=== PATIENT | male | born 1950 | race Caucasian/White ===

== ENCOUNTER 2019-09-28 00:30 | Day surgery (SDC) | payer BC, SELFPAY ==
[2019-09-25 09:09] VITALS: BMI 20.8
[2019-09-28] VITALS (22 sets, daily range): BP systolic 96–117; BP diastolic 52–71; PULSE 48–72; RESP 12–18; TEMP 36.2–36.4; O2SAT 93–100
[2019-09-28] MEDS: LACTATED RINGERS 1,000 ML 30 ML IV CONT ×2 (06:30→10:01)
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
--- NOTE | 2019-09-28 07:10 | ECG_ITS ---
Measurements Intervals [place] Rate: 61 P: 81 HI: 154 QRS: -26 QRSD: 87 T: 54 QT: 425 QTc: 431 Interpretive Statements SINUS RHYTHM ATRIAL PREMATURE COMPLEXES PEAKED T WAVES- CONSIDER HYPERKALEMIA OR ISCHEMIA BASELINE ARTIFACT- II, III, AVF ABNORMAL ECG Electronically Signed On 09-28-2019 7:52:27 CDT by Carlos Ruffin D.O.
--- NOTE | 2019-09-28 07:23 | WPDHPUPDATE1 ---
History and Physical Update Update Date/Time: 09/28/19 07:23 History and Physical has been reviewed, including an updated exam of the patient. There are NO changes in the patient's condition. Risks, benefits, and alternatives have been discussed and questions answered. Patient agrees to proceed with procedure.
--- NOTE | 2019-09-28 07:30 | SUR.PREOP ---
Up to bathroom.
[2019-09-28] MEDS: ceFAZolin 2 GM/D5W 50 ML 2 GM/50 ML BAG IVPB (07:41)
[2019-09-28] MEDS: IBUPROFEN IV 800 MG/200 ML 800 MG/200 ML BAG 400 MG IVPB (07:57)
[2019-09-28] MEDS: BUPIVACAINE/EPINEPHRINE 0.5% 30 ML VIAL INFILTRATE (08:16)
--- NOTE | 2019-09-28 09:28 | PM.PROC ---
Procedure Note - Detailed Date of procedure: 09/28/19 Pre-op diagnosis: bilateral inguinal hernia Post-op diagnosis: same ([place] right inguinal hernia, Direct left inguinal hernia) Procedure performed: Laparoscopic bilateral inguinal hernia repair with Progrip mesh, da Manjula assisted Description of procedure: Procedure as well as risks, benefits, and alternatives were discussed with the patient. Written consent was obtained and placed in chart prior to procedure. Patient was brought back to surgical suite. He was placed supine on operating table. Time-out was done to confirm patient and procedure. He was then intubated by Anesthesia Department. His abdomen was prepped and draped in sterile fashion using chlorhexidine prep. 0.5% bupivacaine with epinephrine was infiltrated at each location for incision. A 12 millimeter transverse incision was made just superior to the umbilicus using a 15 blade scalpel. Blunt dissection was carried out down to the linea alba. A vertical incision was made at the linea alba using a 15 blade scalpel. The peritoneum was then bluntly entered. A 12 millimeter trocar was inserted and carbon dioxide insufflation was used to create a pneumoperitoneum. A camera was inserted and the abdominal cavity was inspected. The patient was placed in slight Trendelenburg position. An 8 millimeter incision was made on the right lateral abdomen and an 8 millimeter trocar was inserted under direct visualization. Another 8 millimeter incision was made in the left lateral abdomen and an 8 millimeter trocar was inserted under direct visualization. The robotic arms were brought up to the patient's bedside and secured to the ports. The camera and instruments were inserted. I then moved over to the robotic console and took control of the camera and instruments. After careful inspection of the abdominal cavity, I began scoring the peritoneum along the right lower quadrant using scissors with electrocautery. The preperitoneal plane was entered and this was carefully dissected caudally along the inferior epigastric vessels. Careful dissection with scissors with electrocautery and blunt dissection was used to continue this dissection. I dissected far enough laterally to allow for mesh placement, and also dissected medially to identify the pubic arch and Hiram's ligament. The hernia sac was identified and carefully dissected posteriorly. The cord contents were also identified and the peritoneum was carefully dissected far enough posteriorly to allow for mesh placement. Once an adequate pocket was created, I then placed the mesh within the preperitoneal pocket and carefully unfolded it. The mesh was centered on the hernia defect with adequate overlap circumferentially. The inferior edge of the mesh was inspected to ensure that it was far enough away from the peritoneal edge. The mesh appeared in proper position overlying the entire myopectineal orifice. The peritoneum was then closed over the mesh using a 3-0 V-lock running absorbable suture. I then began scoring the peritoneum along the left lower quadrant using scissors with electrocautery. The preperitoneal plane was entered and this was carefully dissected caudally along the inferior epigastric vessels. Careful dissection with scissors with electrocautery and blunt dissection was used to continue this dissection. I dissected far enough laterally to allow for mesh placement, and also dissected medially to identify the pubic arch and Hiram's ligament. The hernia sac was identified and carefully dissected posteriorly. The cord contents were also identified and the peritoneum was carefully dissected far enough posteriorly to allow for mesh placement. Once an adequate pocket was created, I then placed the mesh within the preperitoneal pocket and carefully unfolded it. The mesh was centered on the hernia defect with adequate overlap circumferentially. The inferior edge of the mesh was inspected to en
--- NOTE | 2019-09-28 10:57 | SUR.PHASEI ---
1057-SPOKE WITH DR. ENGEL, AWARE UNABLE TO AROUSE PT, VSS AND REPORTED, WILL CONTINUE TO OBSERVE.
--- NOTE | 2019-09-28 10:59 | SUR.PHASEI ---
1058-UPDATE GIVEN TO Nawaf SELLERS RN TO GIVE TO PT'S .
--- NOTE | 2019-09-28 11:03 | SUR.PHASEI ---
1101-DR. RINCON IN PACU AND AWARE OF PT STATUS, NO NEW ORDERS.
--- NOTE | 2019-09-28 11:23 | SUR.PHASEI ---
1103-DR. ENGEL AT [facility], PT RESPONDED WITH OPENING EYES WITH STERNAL RUB.
--- NOTE | 2019-09-28 17:06 | SUR.PHASEII ---
1600 DR RINCON AWARE OF PT UNABLE TO URINATE- MERCEDES CATHETER ORDERED. INSTRUCTED TO HAVE PT FOLLOW UP ON SATURDAY MORNING FOR MERCEDES CATHETER REMOVAL.
== END 2019-09-28 17:28 | disposition home or self-care (01) ==
PROVIDERS: PCP Family Medicine; Visit Provider Surgery
PROC: 8E0Y4CZ Robotic Assisted Procedure of Lower Extremity, Percutaneous Endoscopic Approach (ICD-10-PCS; CPT 49650; principal; 2019-09-28 07:30)
DX: K40.20 Bilateral inguinal hernia, without obstruction or gangrene, not specified as recurrent (principal); J44.9 Chronic obstructive pulmonary disease, unspecified; E07.9 Disorder of thyroid, unspecified; Z86.19 Personal history of other infectious and parasitic diseases; F17.210 Nicotine dependence, cigarettes, uncomplicated
CPT/HCPCS: 49650; S2900; 36415; 86850; 86900; 86901; 93005; A9270; C1781; J0330; J0690; J1100; J1741; J2250; J2370; J2405; J2704; J2710; J3010; J7030; J7120

== ENCOUNTER 2021-10-19 08:56 | Outpatient (CLI) | payer MEDICARE, SELFPAY ==
--- NOTE | ~2021-10-19 | US_ITS ---
EXAMINATION: US aorta [facility] DATE: 10/19/2021 10:06 INDICATION: Abdominal aortic aneurysm screening with risk factors of prior smoking. TECHNIQUE: Grayscale, color Doppler, and pulsed Doppler images of the aorta and common iliac arteries were obtained. COMPARISON: None. FINDINGS: The proximal aorta measures 3.0 cm. The mid aorta measures 2.2 cm. The distal aorta measures 2.1 cm. The right common iliac artery measures 1.3 cm. The left common iliac artery measures 1.0 cm. IMPRESSION: 1. Normal caliber abdominal aorta. Reviewed, dictated and finalized at location B.
--- NOTE | ~2021-10-19 | CT_ITS ---
EXAMINATION:CT lung screening DATE: 10/19/2021 09:24 INDICATION: Nicotine dependence, cigarettes, uncomplicated. Current smoker with 37 pack year history. TECHNIQUE: Computed tomography (CT) of the chest was performed without intravenous contrast. Automate d exposure control and iterative reconstruction technique were employed. The dose-length product (DLP ) was 78.02 mGy-cm. COMPARISON: Chest CT 11/01/2015 FINDINGS: There is severe emphysema. There is worsened partial collapse of right middle lobe with bro nchiectasis. There is mild atelectasis in the lower lobes and lingula. There is stable mild scarring at right lung apex. The heart size is normal. No pericardial effusion. There is mild thoracic spondyl osis. There is mild chronic anterior wedging of multiple thoracolumbar vertebral bodies. IMPRESSION: 1. Lung-RADS category 2: Benign appearance or behavior. Continue annual screening with noncontrast lo w-dose chest CT in 12 months. Reviewed, dictated and finalized at location A. IMPRESSION: 1. Lung-RADS category 2: Benign appearance or behavior. Continue annual screeni ng with noncontrast low-dose chest CT in 12 months.
== END 2021-10-19 08:57 | disposition home or self-care (01) ==
LOC: ANHIMG 08:57
PROVIDERS: PCP Family Medicine; Visit Provider Physician Assistant
DX: Z12.2 Encounter for screening for malignant neoplasm of respiratory organs (principal); F17.210 Nicotine dependence, cigarettes, uncomplicated
CPT/HCPCS: 71271; 76706

== ENCOUNTER 2023-06-18 12:32 | Outpatient (CLI) | payer MEDICARE, SELFPAY ==
--- NOTE | ~2023-06-18 | CT_ITS ---
CT Scan of the Chest without Contrast: Clinical Indication: Lung cancer screening, tobacco use Technique: Contiguous sections were acquired throughout the chest without intravenous contrast. Dose reduction technique was used on this scan by utilizing automated exposure control and iterative recon struction technique. The dose-length product (DLP) was 80.88 mGy-cm. COMPARISON: 10/19/2021 Findings: There is no evidence of any significant mediastinal, hilar or axillary lymphadenopathy. The mediastin al soft tissues appear normal. There is no evidence of pleural or pericardial effusion. There is advanced emphysema. There is chronic atelectatic change of the right middle lobe. There is i ncreased consolidation in the left upper lobe/lingula, possibly atelectatic change. Images through the upper abdomen reveal no abnormalities. Impression: Lung RADS 4A: Suspicious. 3 month follow-up CT recommended to reassess presumed atelectasis/scarring at the lingula. Advanced emphysema. Reviewed, dictated and finalized at [facility]. 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 3 month follow-up CT recommended to reassess presumed atelectasis/scarring at the lingula. Advanced emphysema.
== END 2023-06-18 12:33 | disposition home or self-care (01) ==
PROVIDERS: PCP Family Medicine; Visit Provider Nurse Practitioner Family
DX: Z12.2 Encounter for screening for malignant neoplasm of respiratory organs (principal); J43.8 Other emphysema; R91.8 Other nonspecific abnormal finding of lung field; Z87.891 Personal history of nicotine dependence
CPT/HCPCS: 71271

== ENCOUNTER 2023-08-01 00:55 | Day surgery (SDC) | payer MEDICARE, SELFPAY ==
[2023-07-12 13:33] VITALS: BMI 33.8
--- NOTE | 2023-07-30 10:07 | SUR.PREOP ---
Patient called regarding upcoming procedure. Reviewed preop instructions, appointment times, and procedure prep.
[2023-08-01 06:57] VITALS: BP 133/75; PULSE 76; RESP 20; TEMP 36.5; O2SAT 95; BMI 18.5
[2023-08-01] MEDS: LACTATED RINGERS 1,000 ML 150 ML IV CONT (07:05)
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
[2023-08-01 08:12] VITALS: BP 119/63; PULSE 79; RESP 26; O2SAT 97
[2023-08-01 08:22] VITALS: BP 112/68; PULSE 71; RESP 17; O2SAT 98
[2023-08-01 08:32] VITALS: BP 112/68; PULSE 78; RESP 15; O2SAT 95
== END 2023-08-01 08:38 | disposition home or self-care (01) ==
PROVIDERS: PCP Family Medicine; Visit Provider Internal Medicine Gastroenterology
PROC: 0DJD8ZZ Inspection of Lower Intestinal Tract, Via Natural or Artificial Opening Endoscopic (ICD-10-PCS; CPT 45378; principal; 2023-08-01 07:30)
DX: Z12.11 Encounter for screening for malignant neoplasm of colon (principal); D12.3 Benign neoplasm of transverse colon; K63.5 Polyp of colon; K64.8 Other hemorrhoids; K57.30 Diverticulosis of large intestine without perforation or abscess without bleeding; J43.9 Emphysema, unspecified; J98.19 Other pulmonary collapse; E07.9 Disorder of thyroid, unspecified; F12.90 Cannabis use, unspecified, uncomplicated; F17.210 Nicotine dependence, cigarettes, uncomplicated; Z98.890 Other specified postprocedural states; Z80.42 Family history of malignant neoplasm of prostate
CPT/HCPCS: 45385; 88305; J2001; J2704; J7120

== ENCOUNTER 2023-11-26 11:06 | Outpatient (CLI) | payer MEDICARE, SELFPAY ==
--- NOTE | ~2023-11-26 | CT_ITS ---
CT diagnostic chest wo con Ordering provider: Alex Prieto MD History: 73 years Male with . fu nodule . Comparison: None. Technique: CT chest without IV contrast. Radiation reduction technique utilized. DLP is 78.99 mGy. FINDINGS: VISUALIZED THORACIC INLET: Normal. MEDIASTINUM: Aorta/coronary arteries: Mild atheromatous disease. Heart/other: The heart is not enlarged. Lymph nodes: No mediastinal or hilar adenopathy. Paratracheal and precarinal lymph nodes are seen wit h the largest measures 1.1 cm. LUNGS: Emphysematous changes of the lungs. No pulmonary nodules or masses. No infiltrates or effusion s. No pneumothorax. Atelectatic changes in the lingula and right middle lobe. Bronchiectatic changes are seen in the lower lobes. VISUALIZED UPPER ABDOMEN: Possible left kidney stone. Otherwise, the visualized upper abdomen is norm al. MUSCULOSKELETAL: Soft tissues: The superficial soft tissues are normal. Bones: Age appropriate degenerative changes of the spine. IMPRESSION: 1. No definite nodules seen. 2. Atelectatic changes seen in the lingula and middle lobe. No change from previous examination. 3. Emphysematous changes of the lungs. 4. Lung right's category A4. Atelectasis in the lingula and middle lobe. Low Dose chest CT in 3 mario hs is advised. Reviewed, dictated and finalized at location A. IMPRESSION: 1. No definite nodules seen. 2. Atelectatic changes seen in the lingula and middle lobe. No change from pre vious examination. 3. Emphysematous changes of the lungs. 4. Lung right's category A4. Atelectasis in the lingula and middle lobe. Low D ose chest CT in 3 months is advised.
== END 2023-11-26 11:07 | disposition home or self-care (01) ==
LOC: ANHIMG 11:09
PROVIDERS: PCP Family Medicine; Visit Provider Family Medicine
DX: R91.1 Solitary pulmonary nodule (principal); J43.9 Emphysema, unspecified
CPT/HCPCS: 71250

== ENCOUNTER 2025-04-01 09:33 | Outpatient (CLI) | payer MEDICARE, SELFPAY ==
--- OUTSIDE RECORDS SUMMARY | 2004-04-10 02:30 | XMS_ITS | Continuity of Care Document ---
Author Organization [facility] Address [address] [place] [address] Phone Care Team Providers Care Pompom Maker Name Role Phone Yon Parish DO Unavailable Unavailable Advance Directives Directive Yes / No Effective Date File Name No Information Encounters Encounter Description Practice Location Reason(s) For Visit Diagnoses Date Provider Providers Copied on Encounter [facility], [address] [place], [place], [id number], [place] tel:[phone] [facility] No Information Jem Granados. [address] [place], [address], [place]. tel: [phone] Family History Family Member Type Diagnosis Age At Onset No Information Payers Payer name Insurance type Covered republican ID Authoriza tion(s) No Information Social History Type Description Quantity Date Captured Comments Sex Male Smoking Status No Information Chief Complaint And Reason For Visit No Information Reason For Referral Reason For Referral No Information History Of Present Illness Encounter Date Complaint History Of Prese nt Illness No Information Functional Status Date Functional Assessmen t No Information Instructions Date Instruction Additional Infor mation No Information Assessments Type Assessment Date No Information Patient Care Teams Name Effective Dates (start - stop) Status Members No Information
--- NOTE | ~2025-04-01 | CT_ITS ---
EXAM/PROCEDURE: CT lung screening HISTORY: Z87.891 - Personal history of nicotine dependence COMPARISON: November 26, 2023 TECHNIQUE: Low-dose screening chest CT FINDINGS: No acute interval change since the previous exam. Chronic atelectatic and fibrotic appearing changes in the lingular and right middle lobe region similar to slightly worse on today's exam. Severe emphysematous changes throughout the lungs not grossly changed. Nodular asymmetry in the lateral sulcus on the left base slightly more prominent. IMPRESSION: No acute findings. Severe emphysematous changes throughout the lung walter with nodular asymmetry in the left lung base probably associated with fibrocystic changes is seen in the lingula and right middle lobe region. Follow-up low-dose screening chest CT in 12 months recommended. Reviewed, dictated and finalized at location A. [facility] IMPRESSION: No acute findings. Severe emphysematous changes throughout the lung walter with nodular asymmetry in the left lung base probably associated with fibrocystic c hanges is seen in the lingula and right middle lobe region. Follow-up low-dose screening chest CT in 12 months recommended.
--- OUTSIDE RECORDS SUMMARY | 2025-04-01 18:08 | XMS_ITS | Clinical Summary ---
Author Organization [facility] Address [address] [place] [address] Care Team Providers Care Communications Department Chairperson Name Role Phone Alex Prieto MD Primary Care Provider [phone] Source Comments [facility],non-owned Affiliates and Associated Physician Practices is amultiple site organization consisting of ambulatory clinics and hospital sitesin [place], [place], [place] and [place]. This disclosure is being madepursuant to the Care Everywhere program and may not contain all information available regarding this patient. 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 Respiratory Rate 18 04/18/2015 8:00 PM 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 OPERATOR Oxygen Saturation 95% 08/25/2018 9:20 PM CDT Inhaled Oxygen Concentration - - Weight 72.6 kg (160 lb) 08/25/2018 9:20 PM CDT Height 172.7 cm (5' 8) 08/25/2018 9:20 PM CDT Body Mass Index 24.33 08/25/2018 9:20 PM CDT Plan of Treatment Health Maintenance Due Date Last Done Comments [place]OCO (AGES 45-75) - COL ON CA SCREENING 1951 COLON MONITORING 1950 COLONOSCOPY - COLON CA SCREENING 1951 CT COLONOGRAPHY - COLON CA SCREENING 1950 Colorectal Cancer Screening 1950 FIT - COLON CA SCREENING 1951 FLEX SIG - COLON CA SCREENING 1951 LIPID TESTING 1950 HEPATITIS C SCREENING 08/10/1969 DTAP/TDAP/TD VACCINES (1 - Tdap) 08/14/1970 PNEUMOCOCCAL VACCINE 50+ (1 of 1 - PCV) 08/14/2001 ZOSTER VACCINE (1 of 2) 08/14/2001 DEPRESSION SCREENING 05/27/2024 MEDICARE AWV CALENDAR YEAR 2024 COVID-19 VACCINE (1 - 2023-2 5 season) 2025 INFLUENZA VACCINE (#1) 2025 Respiratory Syncytial Virus (RSV) Vaccine Pt: or over 60 yrs (1 - 1-dose 75+ series) 08/14/2026 HEPATITIS B VACCINE Aged Out No longe r eligible based on patient's age to complete this topic HIB VACCINE Aged Out No longer eligi ble based on patient's age to complete this topic HPV VACCINE Aged Out No longer eligi ble based on patient's age to complete this topic MENINGOCOCCAL (Group B) VACC INE SHARED DECISION-MAKING Aged Out No longer eligibl e based on patient's age to complete this topic MENINGOCOCCAL GROUPS A/C/Y/W VACCINE Aged Out No longer eligible b ased on patient's age to complete this topic Insurance MEDICARE AARP MEDICARE ADVANTAGE [place] [id number] [facility] MANAGED MEDICARE ADV [facility] MANAGED MEDICARE ADV [place] [id number] SELF PAY NO INSURANCE Member Subscriber Plan / Payer (Ef fective for All Dates) Name:Yuval Basilio Member ID:Not on file Relation to Subscriber:Not on file Name:YUVAL BASILIO Subscriber ID:Not on file Address: [address] [place] [address] Payer ID:Not on file Group ID:Not on file Type:Self Pay Address: [facility] MANAGED MEDICARE ADV [facility] MANAGED MEDICARE ADV SELF PAY NO INSURANCE Member Subscriber Plan / Payer (Ef fective for All Dates) Name:Yuval Basilio Member ID:Not on file Relation to Subscriber:Not on file Name:YUVAL BASILIO Subscriber ID:Not on file Address: [address] [place] [address] Payer ID:Not on file Group ID:Not on file Type:Self Pay Address: [facility] MEDICARE ADV [employer], [place] [address] [address] Care Teams Communications Department Chairperson Relationship Specialty Start Date End Date Alex Prieto MD [facility] [place] [id number] PCP - General 09/23/17
== END 2025-04-01 09:34 | disposition home or self-care (01) ==
PROVIDERS: PCP Family Medicine; Visit Provider Family Medicine
DX: Z12.2 Encounter for screening for malignant neoplasm of respiratory organs (principal); J43.9 Emphysema, unspecified; Z87.891 Personal history of nicotine dependence
CPT/HCPCS: 71271